=== PATIENT | male | born 1965 | race Hispanic/Latino ===

== ENCOUNTER 2018-09-10 04:44 | Emergency (ER) | payer SELFPAY ==
[2018-09-10] MEDS ORDERED: AMOXICILLIN/POTASSIUM CLAV 875-125 TABLET PO ONE (05:10)
[2018-09-10] MEDS ORDERED: FLUCONAZOLE 100 MG TAB ONE (05:21)
[2018-09-10] MEDS ORDERED: OXYMETAZOLINE HCL SPRAY 15 ML BOTTLE ONE (05:22)
== END 2018-09-10 06:08 | disposition home or self-care (01) ==
LOC: EDH 04:44
DX: J32.9 Chronic sinusitis, unspecified (principal); H92.09 Otalgia, unspecified ear; I10 Essential (primary) hypertension